=== PATIENT | male | born 1995 | race Caucasian/White ===

== ENCOUNTER 2017-10-28 21:07 | Inpatient (IN) | payer OTHER ==
[~2017-10-28] VITALS: Ht 182.9 cm; Wt 70.3 kg
[2017-10-28 23:00] VITALS: BP 108/57
--- NOTE | 2017-10-28 23:00 | NUR ---
Pre-admission Assessment Patient is a 22-year old, male, seen at intake, AAOx4 and with no SOB noted. Patient appears intoxicated, flushed from drinking and is hyperverbal. Patients breath also smells alcohol. Per patient, he is also high, but already coming down from smoking marijuana. Discussed with patient admission policies of the unit. Patient is coherent and able to respond to questions appropriatel. Pt is ambulatory with steady gait. Vital signs taken and as follows: VI=468/57, P=63, O2 sat on RA=96%, RR=18, T=97.8. Pt verbalized instructions and teachings regarding disposal of narcotic and other controlled home meds, unit protocols such as taking of vital signs Q4H and handling and disposal of contraband.
--- NOTE | 2017-10-28 23:45 | NUR ---
Admission Note Patient is a 22-year-old, male, arrived to the floor at 2327 to be admitted for medically supervised withdrawal from Alcohol (Vodka and Whiskey). Patient also verbalized using Marijuana, Cocaine and MDMA. The patient stated that he arrived in [place] from [place] yesterday, 10/27/2017, and was supposed to go to an undisclosed treatment center. However, he was not accepted by the treatment center because according to the patient, I was so drunk and high from smoking Marijuana. The patient is intoxicated from Alcohol, having his last drink about 3 hours prior to arrival at the intake office. His breath also smells of alcohol. Patient appears flushed, hyperverbal and easily agitated. Patient was advised to tone down his loud voice and avoid the use of cuss and racist words. Patient stated that he was fired from his job yesterday for coming to work drunk so he was motivated to undergo detox. Per patient, I lost my means of earning money. 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 Beating the quota was my obsession and now Im unemployed. I want to work again thats why Im here. Patient stated that he has been to multiple detox and treatment centers but because of his intoxication status, he could only recall being at [facility] in [place] x 3 days in May this year. Pt is AAOx4, cooperative but noted to have racing thoughts. Patient reports no allergies and follows a regular diet at home. The patient states that withdrawal symptoms include "anxiety, agitation, tremors, emotional volatility, chills, nausea and vomiting, pins and needles sensation, headache and restless legs" Patient denies a history of seizure but verbalized experiencing multiple blackouts after certain nights of really heavy drinking. Patient explained that he relapsed 2 months ago and his longest sobriety was achieved from May 2016 to May 2017. The reason for patients relapse was because he attended a alliance party and was influenced to drink by his peers. He said that he thought he could control his drinking but did not realize that his drinking would consume and control him again. Substance use are as follows: 1) Alcohol: Vodka and Whiskey-Patient stated that he had his first drink at age 17 due to peer pressure from friends. Per patient, his alcohol of choice is Vodka followed by Whiskey and would drink Vodka majority of the time. Patient verbalized that for the past 2 months, he would drink 750-1500 ml of Vodka/Whiskey on average daily. Last drink was 3 hours prior to admission, at 1999 where he drank 2 glass or about 500 ml of mixed Rum drink at a restaurant. Before that, he finished 750 ml of Vodka the whole day. 2) Marijuana-Patient stated that he first used at age 17 as introduced by friends at school. For the past 2 months, he would smoke 1-2 joints daily, with last smoke at 1999 today. 3) Cocaine-Patient stated that he first used at age 17 during house parties where he and his friends would drink Alcohol and use this substance via nasal insufflation. For the past 2 months, he would use 2-3x per month on average and would snort 0.5 to 1 gm each time. Last use was more than 2 weeks ago. 4) MDMA-Patient stated that he first used at age 17 at house parties and would use with his friends. For the past 2 months, he used about 1-2 pills on most weekends when he goes to the parties in the bars and/or clubs. Last use was on the weekend of 10/18/2017 and he used 1 pill of ecstacy. Patient verbalized that he lives couch surfing at friends homes. He denies any history of Alcoholism nor Substance Abuse in the family. Per patient, his mother is his main support system. Patient also denies medical nor psychiatric history except for blackouts. Patient also denies taking any home meds. Patient verbalized that he is determined to quit this time because I am only 22 and I want to achieve my dreams. If I continue to drink and use then I cant achieve anything. Patient verbalized that he is interested in going to a treatment center after his stay at [facility]. Vital signs are taken and as follows: BP: 112/65, HR: 71, RR: 18, SpO2: 98%, Temp: 98.0. Pulse is palpable and regular. Respirations are even and unlabored. Lung sounds clear. Bowel sounds active x4 quadrants. Last bowel movement was in the morning of yesterday, 10/27/2017. Per patient, his bowel movement is mostly every day. No abdominal pain reported. Skin is intact. Patient follows a regular diet at home. Full Code. Height is 6'0" and weighs 155 lbs per standing scale. Patient stated that he smokes to 1 pack of cigarettes daily. Patient reports no Suicidal Ideation nor Homicidal Ideation nor any history of both. Educated patient about plan of care including detox, group therapy, individual therapy, and discharge planning. Encouraged patient to be open and honest and verbalized support for patient in his recovery. Upon admission to the floor, CIWA=5. Dr. Latham ordered 5-day Ativan on patient, to start tomorrow. Will continue to monitor. Addendum: 10/29/17 at 0414 by YAMIL FAY RN CORRECTION: CIWA IS DEFERRED DUE TO INTOXICATION STATUS.
[2017-10-29] VITALS: BP 103/59
[2017-10-29] MEDS ORDERED: IBUPROFEN 400 MG TABLET PO PRN
[2017-10-29] MEDS ORDERED: ONDANSETRON ODT 4 MG TAB.RAPDIS SL PRN
[2017-10-29] MEDS ORDERED: diphenhydrAMINE 50 MG CAPSULE PO PRN
[2017-10-29] MEDS ORDERED: LORAZEPAM 1 MG TABLET PO PRN ×2
[2017-10-29] MEDS ORDERED: ONDANSETRON 4 MG/2 ML VIAL IM PRN
[2017-10-29] MEDS ORDERED: CLONIDINE HCL 0.1 MG TABLET PO PRN
[2017-10-29] MEDS ORDERED: ACETAMINOPHEN 325 MG TABLET PO PRN
[2017-10-29] MEDS ORDERED: MAGNESIUM HYDROXIDE 30 ML LIQUID UDC PO PRN
[2017-10-29] MEDS ORDERED: LORAZEPAM 2 MG/1 ML VIAL IM PRN
[2017-10-29] MEDS ORDERED: MIRALAX 17 GM POWD.PACK PO PRN
[2017-10-29] MEDS ORDERED: MAG HYDROX/AL HYDROX/SIMETH 30 ML LIQUID UDC PO PRN
[2017-10-29] MEDS ORDERED: LOPERAMIDE HCL 2 MG CAPSULE PO PRN ×2
[2017-10-29] MEDS ORDERED: THIAMINE HCL 200 MG/2 ML VIAL IM ONE
[2017-10-29] MEDS ORDERED: DICYCLOMINE HCL 20 MG TABLET PO PRN
[2017-10-29] MEDS ORDERED: HYDROXYZINE PAMOATE 25 MG CAPSULE PO PRN
--- NOTE | 2017-10-29 02:30 | NUR ---
Lab draw refusal Patient refused blood draw for the second time. Patient was explained the importance of drawing blood related to his alcohol use and to establish baseline labs. However, patient became agitated and started to argue. Per patient, "I'm so tired and I want to sleep. Leave me alone. If you want it, then let's do it in the morning. Not right now. Let me sleep."
[2017-10-29 04:00] VITALS: BP 100/63
--- NOTE | 2017-10-29 04:00 | NUR ---
CIWA deferred Patient's CIWA is deferred due to intoxication status. Vital signs are stable.
--- NOTE | 2017-10-29 06:00 | NUR ---
CIWA 8 Patient started to become jittery, with tremors and appearing flushed. Patient also c/o increasing anxiety and still gets easily agitated.
--- NOTE | 2017-10-29 07:15 | NUR ---
End of Shift Patient asleep at the moment, arousable and is easily agitated. Patient verbalized getting more anxious, starting to have tremors and feeling nauseous. Patient is disheveled, with dirty fingernails and with body odor. Encouraged to take a shower today. Latest CIWA=8, slept for 5 hours. Endorsed to AM shift nurse for continuity of care.
--- NOTE | 2017-10-29 07:20 | NUR ---
Start Of Shift Report received from shift mechanic nurse. Pt Patient is a 22-year-old, male admitted for medically supervised withdrawal from Alcohol (Vodka and Whiskey). Per shift mechanic nurse pt's last CIWA was 8. Pt is currently not on a taper but has PRN Ativan in case of withdrawals. Upon start of shift pt noted laying in his bed with his eyes closed resting, breathing even and unlabored. When greeted pt stated " I want to sleep please leave me alone im tired and not in the mood for this right now". Pt's room appears unorganized and messy, pt has soda bottles and candy wraps laying around the room. Pt appears anxious, and agitated. During assessment, pt is AOx3. Lung sounds clear bilaterally. Radial pulse is regular and non-bounding. Abdomen soft and non-tender. Pt's skin is warm and intact. pt denies any pain at the moment. Encouraged pt to drink plenty of fluids to keep hydrated and help the detox process. Pt did not received any PRN medications last night, pt slept a total of 8 hours last night and continues to sleep. Pt still needs to provide a urine sample and have his blood drawn. Bed in lowest position. Side rails up x2. Call light functioning and within reach. All needs attended and met. Will continue to monitor.
[2017-10-29 08:00] VITALS: BP 111/52
--- NOTE | 2017-10-29 08:00 | NUR ---
CIWA 7 Pt presented with flushed face, fatigue, emotional volatility, yawning once or twice.
[2017-10-29] MEDS ORDERED: TUBERCULIN,PURIF.PROT.DERIV. 5 TU/0.1 ML TEST ID ONE (09:00)
[2017-10-29] MEDS: FOLIC ACID 1 MG TABLET PO SCH (09:00)
[2017-10-29] MEDS: MULTIVITAMINS,THERAPEUTIC TABLET PO SCH (09:00)
[2017-10-29] MEDS: THIAMINE HCL 100 MG TABLET PO SCH ×2 (09:00)
[2017-10-29 09:05] LABS: BASOPHILS % (AUTO) 0.5 % (0.0-2.0); EOSINOPHILS # (AUTO) 0.3 K/uL (0.0-0.7); EOSINOPHILS % (AUTO) 5.1 % (0.0-7.0); HEMATOCRIT 42.2 % (36.7-47.1); HEMOGLOBIN 14.3 g/dL (12.5-16.3); LYMPHOCYTES # (AUTO) 1.5 K/uL (20.0-40.0); LYMPHOCYTES % (AUTO) 28.2 % (20.5-74.5); MEAN CORPUSCULAR HEMOGLOBIN 30.9 uug (23.8-33.4); MEAN CORPUSCULAR HGB CONC 34 g/dL (32.5-36.3); MEAN CORPUSCULAR VOLUME 91.2 fL (73.0-96.2); MONOCYTES # (AUTO) 0.6 K/uL (2.0-10.0); MONOCYTES % (AUTO) 10.5 % (0-11); NEUTROPHILS # (AUTO) 2.9 K/uL (1.8-8.9); NEUTROPHILS % (AUTO) 55.7 % (31.5-64.5); PLATELET COUNT (AUTO) 185 K/uL (152-348); RED BLOOD CELL COUNT(AUTO) 4.63 MIL/uL (4.06-5.63); WHITE BLOOD COUNT (AUTO) 5.3 K/uL (3.6-10.2)
[2017-10-29 09:36] LABS: ETHANOL < 3 MG/DL (0-0)
[2017-10-29 09:43] LABS: ALANINE AMINOTRANSFERASE 22 U/L (16-63); ALKALINE PHOSPHATASE 54 U/L (50-136); AMYLASE 57 U/L (25-115); ASPARTATE AMINOTRANSFERASE 18 U/L (15-37); BILIRUBIN,TOTAL 0.6 mg/dL (0.2-1.0); CARBON DIOXIDE 28 mmol/L (21-32); CHLORIDE 107 mmol/L (98-107); GLUCOSE 95 mg/dL (74-106); LIPASE 121 U/L (73-393); POTASSIUM 4.2 mmol/L (3.5-5.1); TOTAL PROTEIN, SERUM 7.3 g/dL (6.4-8.2); UREA NITROGEN, BLOOD 11 mg/dL (7-18)
[2017-10-29 10:53] LABS: THYROID STIMULATING HORMONE 0.979 mIU/mL (0.358-3.740)
[2017-10-29 12:00] VITALS: BP 118/65
[2017-10-29 14:38] LABS: *AMPHETAMINE, URINE NEGATIVE (NEGATIVE); *BARBITURATE, URINE NEGATIVE (NEGATIVE); *CANNABINOID, URINE POSITIVE (NEGATIVE); *COCCAINE, URINE NEGATIVE (NEGATIVE); *OPIATE, URINE NEGATIVE (NEGATIVE); *PHENCYCLIDINE SCREEN,URINE NEGATIVE (NEGATIVE)
[2017-10-29] MEDS ORDERED: NICOTINE POLACRILEX 4 MG GUM-PK OF TEN BC PRN (15:15)
[2017-10-29 16:00] VITALS: BP 114/70
--- NOTE | 2017-10-29 19:00 | NUR ---
End Of Shift Report given to shift mgr nurse, Pt A&Ox4 Vitals monitored Q4H, Plan of care followed, Pt stayed in room most of the day sleeping, pt denied having any major symptoms of withdrawals, Pt was not placed on a taper but has PRN medications in case of withdrawal symptoms. Pt's initial CIWA score was 6 pt presented with a flushed face and sweats. Pt did not request any PRN medications during the day shift. Pt attended groups and activities. Most recent COWS score was a 7. Pt ate all of his meals, Encouraged pt to drink plenty of fluids to stay hydrated as well as to help facilitate the detox process. Pt will be monitored further for any symptoms of withdrawal.
[2017-10-29 20:00] VITALS: BP 102/63
--- NOTE | 2017-10-29 20:00 | NUR ---
Start of shift Patient is a 22 year old male admitted on 10/28/2017. Patient is here at [facility] for medically supervised withdrawal from ETOH. Patient also has a history of using Marijuana, cocaine, and MDMA. Patients last CIWA was 7 at 1600. Patient is on PRN medications. Patient denies seizure history. Patient is on fall and seizure precautions. Upon rounds patient was noted in room, he seemed restless, anxious, and agitated. Respirations are even and unlabored. Safety precautions in place, bed locked in lowest position, side rails up x2. Will continue to monitor.
--- NOTE | 2017-10-29 20:00 | NUR ---
CIWA Assessment CIWA is 7. Patient is presenting with withdrawal symptoms: anxiety, agitation, tremors, and mild sweats. Respirations even and unlabored. Will continue to monitor.
--- NOTE | 2017-10-30 00:35 | NUR ---
V/S refused and CIWA assessment deferred for sleep. Respirations even and unlabored. Will continue to monitor.
--- NOTE | 2017-10-30 04:12 | NUR ---
V/S refused and CIWA assessment deferred for sleep. Respirations even and unlabored. Will continue to monitor.
[2017-10-30 05:08] LABS: HEPATITIS B SURFACE AG Negative (Negative)
--- NOTE | 2017-10-30 07:29 | NUR ---
End of shift Patient is a 22 year old male admitted on 10/28/2017. Patient is here at [facility] for medically supervised withdrawal from ETOH. Patients last CIWA was 7 at 2000. Patient did not receive any PRN medications during this shift. Patient is on fall and seizure precautions. Patient slept for 8 hours and total intake was 1,190 ml. Patient voided x4, and had bowel movement x1. Safety precautions in place, bed locked in lowest position, side rails up x2. Will endorse to day shift.
--- NOTE | 2017-10-30 07:30 | NUR ---
START OF SHIFT Pt 22 y/o male admitted for etoh withdrawal. Pt received in room on bed with eyes closed resting but easily arousable to name. Pt alert and oriented to name, place, and time. Perrla. Skin warm to touch. Respirations even and unlabored. Appears disheveled and unkempt. Empty drink bottles and clothes scattered throughout the room. Encouraged to maintain hygiene. Anxious. Observed pacing this morning. It was reported that pt slept for 8 hours last night. Pt is scheduled to be discharged to [facility] today. Bed on lowest position with side rails x2 up for safety. Call light within reach.
[2017-10-30 08:00] VITALS: BP 107/60
[2017-10-30] MEDS: MULTIVITAMINS,THERAPEUTIC TABLET PO SCH (09:00)
[2017-10-30] MEDS: THIAMINE HCL 100 MG TABLET PO SCH (09:00)
[2017-10-30] MEDS: FOLIC ACID 1 MG TABLET PO SCH (09:00)
--- NOTE | 2017-10-30 09:30 | NUR ---
DISCHARGE Pt 22 y/o male admitted for etoh withdrawal. Pt received in room on bed with eyes closed resting, but easily arousable to name, place, and time. Perrla. Skin warm to touch. Respirations even and unlabored. No belongings in cassette or cabinet noted. No home medications noted. Belongings and discharge papers packed in bag. Pt denies any SI/ HI. Pt discharged to [facility] via private transport. No distress noted.
== END 2017-10-30 09:30 | disposition other institution (70) | DRG 895 ==
LOC: SRC 22:01
PROVIDERS: ADMIT Family Medicine Addiction Medicine; ATTEND Family Medicine Addiction Medicine
PROC: HZ2ZZZZ Detoxification Services for Substance Abuse Treatment (ICD-10-PCS; principal; 2017-10-28)
PROC: HZ41ZZZ Group Counseling for Substance Abuse Treatment, Behavioral (ICD-10-PCS; 2017-10-29)
DX: F10.230 Alcohol dependence with withdrawal, uncomplicated (principal); F15.229 Other stimulant dependence with intoxication, unspecified; F14.10 Cocaine abuse, uncomplicated; Y90.9 Presence of alcohol in blood, level not specified; F12.129 Cannabis abuse with intoxication, unspecified; Z59.0 Homelessness; F41.9 Anxiety disorder, unspecified; F17.210 Nicotine dependence, cigarettes, uncomplicated
CPT/HCPCS: 36415; 70030-TC; 80307; 80349; 83690; 83735; 84443; 85025; 86592; 86705; 86803; 87340; 87806; G0480